=== PATIENT | male | born 1970 | race Caucasian/White ===

== ENCOUNTER 2018-12-30 12:13 | Emergency (ER) | payer OTHER ==
[~2018-12-30] VITALS: Ht 190.5 cm; Wt 170.4 kg
--- NOTE | 2018-12-30 12:29 | ERD ---
ER Documentation Chief Complaint Chief Complaint HPI This is a 48-year-old male with a history of sleep apnea who presents with fever , headache and generalized malaise. Symptoms have been ongoing for the last 2 days, he is brought in by EMS. He has nausea, but no vomiting, endorses generalized body aches. He denies shortness of breath. He does smoke tobacco. ROS All systems reviewed and are negative except as per history of present illness. Medications Home Meds Active Scripts Azithromycin* (Zithromax*) 500 Mg Tablet, 500 MG PO DAILY for 5 Days, TAB Prov:ALBANIA HERNANDEZ MD 12/30/18 Oseltamivir Phosphate* (Tamiflu*) 75 Mg Capsule, 75 MG PO BID for 5 Days, CAP Prov:ALBANIA HERNANDEZ MD 12/30/18 Reported Medications Lisinopril* (Lisinopril*) 5 Mg Tablet, 5 MG PO DAILY, #30 TAB 12/30/18 Temazepam* (Temazepam*) 30 Mg Capsule, 30 MG PO HS PRN for INSOMNIA, CAP 12/30/18 Alprazolam* (Xanax*) 0.5 Mg Tab, 0.5 MG PO BID PRN for ANXIETY, TAB 12/30/18 Mirtazapine* (Remeron*) 15 Mg Tablet, 45 MG PO HS, TAB 12/30/18 Fluoxetine Hcl* (Prozac*) 40 Mg Capsule, 80 MG PO DAILY, CAP 12/30/18 Allergies Allergies: Coded Allergies: No Known Allergy (Unverified , 12/30/18) Physical Exam Vitals Vital Signs Date Temp Pulse Resp B/P (MAP) Pulse Ox O2 O2 Flow FiO2 Time Delivery Rate 12/30/18 98.5 86 18 127/57 95 Room Air 14:00 (80) 12/30/18 101.8 12:53 12/30/18 101.8 91 29 136/77 96 12:33 (96) Physical Exam Const: Febrile, nontoxic-appearing Head: Atraumatic Eyes: Normal Conjunctiva ENT: Normal External Ears, Nose and Mouth. Neck: Full range of motion. No meningismus. Resp: Clear to auscultation bilaterally, no wheezes rales or rhonchi Cardio: Regular rate and rhythm, no murmurs Abd: Soft, non tender, non distended. Normal bowel sounds Skin: No petechiae or rashes Back: No midline or flank tenderness Ext: No cyanosis, or edema Neur: Awake and alert Psych: Normal Mood and Affect Result Diagram: 12/30/18 1228 12/30/18 1228 Results 24 hrs Laboratory Tests Test 12/30/18 12:28 12/30/18 12:31 12/30/18 14:28 White Blood Count 12.0 10^3/ul Red Blood Count 4.66 10^6/ul Hemoglobin 14.4 g/dl Hematocrit 42.1 % Mean Corpuscular Volume 90.3 fl Mean Corpuscular Hemoglobin 30.9 pg Mean Corpuscular 34.2 g/dl Hemoglobin Concent Red Cell Distribution Width 12.8 % Platelet Count 190 10^3/UL Mean Platelet Volume 11.6 fl Immature Granulocytes % 0.700 % Neutrophils % 89.8 % Lymphocytes % 5.9 % Monocytes % 3.1 % Eosinophils % 0.2 % Basophils % 0.3 % Nucleated Red Blood Cells % 0.0 /100WBC Immature Granulocytes # 0.080 10^3/ul Neutrophils # 10.8 10^3/ul Lymphocytes # 0.7 10^3/ul Monocytes # 0.4 10^3/ul Eosinophils # 0.0 10^3/ul Basophils # 0.0 10^3/ul Nucleated Red Blood Cells # 0.0 10^3/ul Prothrombin Time 12.7 Sec Prothrombin Time Ratio 1.0 INR International Normalized Ratio 0.94 Activated Partial Thromboplast 26.4 Sec Time Sodium Level 138 mmol/L Potassium Level 4.1 mmol/L Chloride Level 104 mmol/L Carbon Dioxide Level 24 mmol/L Anion Gap 10 Blood Urea Nitrogen 13 mg/dl Creatinine 1.10 mg/dl Est Glomerular Filtrat Rate mL/min > 60 mL/min Glucose Level 165 mg/dl Calcium Level 9.8 mg/dl Total Bilirubin 0.1 mg/dl Direct Bilirubin 0.00 mg/dl Indirect Bilirubin 0.1 mg/dl Aspartate Amino Transf (AST/SGOT) 28 IU/L Alanine 36 IU/L Aminotransferase (ALT/SGPT) Alkaline Phosphatase 125 IU/L Troponin I < 0.012 ng/ml Total Protein 8.0 g/dl Albumin 4.4 g/dl Globulin 3.60 g/dl Albumin/Globulin Ratio 1.22 POC Venous Lactate 2.3 mmol/L 1.7 mmol/L Current Medications Medications Dose Sig/Dominic Start Time Status Last (Trade) Ordered Route PRN Stop Time Admin Dose Reason Admin Sodium 1,000 ml BOLUS OVER 2 12/30/18 DC 12/30/18 Chloride HOURS STAT 12:35 12:48 (NS) IV* 12/30/18 12:40 1,000 mg ONCE STAT 12/30/18 DC 12/30/18 Acetaminophen PO 12:35 12:53 (Tylenol 12/30/18 12:40 Tab) Ketorolac 30 mg ONCE STAT 12/30/18 DC 12/30/18 Tromethamine IV 12:38 12:51 (Toradol) 12/30/18 12:39 Ketorolac 30 mg ONCE STAT 12/30/18 DC Tromethamine IV 13:16 (Toradol) 12/30/18 13:18 Ketorolac 30 mg ONCE STAT 12/30/18 DC 12/30/18 Tromethamine IV 13:16 13:23 (Toradol) 12/30/18 13:20 25 mg ONCE ONCE 12/30/18 DC 12/30/18 Diphenhydrami IV 13:30 13:20 ne HCl 12/30/18 13:31 (Benadryl) 10 mg ONCE ONCE 12/30/18 DC 12/30/18 Metoclopramid IV 13:30 13:20 e HCl 12/30/18 13:31 (Reglan) Procedures/MDM This is a 48-year-old male presents with fever, generalized malaise, on exam the patient had a fever noted, he has no meningeal signs, he is awake alert, and nontoxic-appearing, his chest x-ray showed no evidence of pneumonia. At this point I do not suspect sepsis or severe sepsis, his history and physical is most consistent with an influenza-like illness, his POC lactate was mildly elevated at 2.3 he was given IV fluids, as well as treatment for symptoms, he remained hemodynamic stable in the ED, he will be treated with azithromycin and Tamiflu, although his influenza was negative, and he does clinically if the symptoms of influenza, additionally I considered occult early pneumonia, thus we will treat with azithromycin. Patient and spouse were in agreement with plan of care, at discharge patient was in no acute distress. EKG: Rate/Rhythm: Normal Sinus Rhythm QRS, ST, T-waves: No changes consistent w/ acute ischemia Impression: No evidence of ischemia or arrhythmia Departure Diagnosis: Primary Impression: Chest pain Chest pain type: unspecified Qualified Codes: R07.9 - Chest pain, unspecified Additional Impressions: Cough Influenza-like illness Condition: Stable ALBANIA HERNANDEZ MD Dec 30, 2018 12:29
[2018-12-30 12:33] VITALS: Ht 190.5 cm; Wt 170.4 kg
[2018-12-30] MEDS ORDERED: SODIUM CHLORIDE 0.9% 1L BAG IV* STA (12:35)
[2018-12-30] MEDS ORDERED: ACETAMINOPHEN 325 MG TAB PO STA (12:35)
[2018-12-30] MEDS ORDERED: KETOROLAC 30 MG INJ IV STA ×3 (12:38→13:16)
[2018-12-30] MEDS ORDERED: METOCLOPRAMIDE 10 MG INJ IV ONE (13:30)
[2018-12-30] MEDS ORDERED: DIPHENHYDRAMINE 50 MG INJ IV ONE (13:30)
[2018-12-30] MEDS ORDERED: MIRT15TA PO (13:57)
[2018-12-30] MEDS ORDERED: FLUO40CA10 PO (13:57)
[2018-12-30] MEDS ORDERED: LISI-313 PO (13:57)
[2018-12-30] MEDS ORDERED: ALPR0.5T PO (13:57)
[2018-12-30] MEDS ORDERED: TEMA30CA PO (13:57)
[2018-12-30] MEDS ORDERED: AZIT500T3 PO (14:50)
[2018-12-30] MEDS ORDERED: OSEL75CA23 PO (14:50)
[2018-12-30 15:32] VITALS: BP 116/55; PULSE 85; RESP 18
== END 2018-12-30 15:35 | disposition home or self-care (01) ==
LOC: E/R 12:13
DX: J11.1 Influenza due to unidentified influenza virus with other respiratory manifestations (principal); R07.9 Chest pain, unspecified
CPT/HCPCS: 71045; 80053; 83605; 84484; 85025; 85610; 85730; 87040; 87400; 93005; J1200; J1885; J2765; J7030; 36415; 96374; 96375; 96376